=== PATIENT | female | born 1950 | race Caucasian/White ===

== ENCOUNTER 2016-11-19 21:40 | Emergency (ER) | payer MEDICARE, OTHER ==
[2016-11-19] MEDS ORDERED: LORATADINE 10 MG TABLET PO STA (22:37)
[2016-11-19] MEDS ORDERED: diphenhydrAMINE 25 MG CAPSULE PO STA (22:38)
[2016-11-19] MEDS ORDERED: predniSONE 20 MG TABLET PO STA (22:38)
--- NOTE | 2016-11-19 22:54 | ED Physician Documentation ---
History of Present Illness - Stated complaint Stated Complaint: BUG BITES - Chief complaint Chief Complaint: General - History obtained from History obtained from: Patient - Additonal information Additional information: Patient is a healthy woman without any significant medical history or recurrent allergies. She presents with a complaint of a red swollen and very pruritic right arm. She had the onset of symptoms yesterday after she noticed a few bumps on her arm consistent with an insect bite. From that time to the present the area surrounding the bites has become more red, swollen and intensely pruritic. She does not really have any other systemic complaints such as wheezing or shortness of breath her inability to swallow. She has had this happen before. There are no other dermatologic areas involved. Review of systems: For pertinent positive and negatives in the review of systems please see history of present illness. Otherwise all other systems have been reviewed and are negative. Dragon disclaimer: Parts of this medical record were created using voice recognition technology. Because of the inherent limitations of this system occasional same sounding word substitutions do occur and persist despite proofreading. Please read the document for context. Review of Systems Ten Systems: 10 systems reviewed and negative Constitutional: denies: Fever, Chills, Myalgias Eyes: denies: Loss of vision Nose: denies: Reviewed and negative Cardiac: denies: Chest pain / pressure, Palpitations Respiratory: denies: Dyspnea, Cough GI: denies: Abdominal Swelling Neurologic: denies: Generalized weakness PD PAST MEDICAL HISTORY - Past Surgical History Past Surgical History: Yes - Present Medications Home Medications: Ambulatory Orders Medication Instructions Recorded Confirmed Loratadine [Claritin] 10 mg PO DAILY PRN 12/02/13 11/19/16 Loratadine [Claritin] 10 mg PO DAILY #7 tablet 11/19/16 Prednisone 40 mg PO DAILY #8 tablet 11/19/16 Triamcinolone 0.1% Cream [Kenalog 1 gm TOP BID #30 tube 11/19/16 0.1% Cream] - Allergies Allergies/Adverse Reactions: Allergies Allergy/AdvReac Type Severity Reaction Status Date / Time No Known Drug Allergies Allergy Verified 12/02/13 22:02 - Social History Does the pt smoke?: No Smoking Status: Never smoker Does the pt drink ETOH?: No Does the pt have substance abuse?: No - Immunizations Immunizations are current?: Yes - POLST Patient has POLST: No PD ED PE NORMAL - General General: Alert and oriented X 3, No acute distress, Well developed/nourished - HEENT HEENT: Atraumatic, PERRL, EOMI - Neck Neck: Supple, no meningeal sign - Cardiac Cardiac: RRR, No murmur, No gallop, No rub - Respiratory Respiratory: No respiratory distress, Clear bilaterally - Abdomen Abdomen: Normal bowel sounds - Derm Derm: Other (Normal skin exam except the right upper arm where she has approximately 5 separate little hard pills with surrounding erythema and mild induration of the skin) Results - Vitals Vitals: Vital Signs - 24 hr 11/19/16 21:44 Temperature 36.5 C Heart Rate 87 Respiratory 16 Rate Blood Pressure 151/78 H O2 Saturation 100 Oxygen O2 Source Room air PD MEDICAL DECISION MAKING - ED course ED course: Well-appearing female who sounds like she had some type of insect bite sting her envenomation yesterday. Subsequently the area around the biceps become red , warm, swollen and intensely pruritic. Examination suggests insect bite with a local allergic reaction. Her symptoms and findings especially at this point are not consistent with cellulitis. The patient was given Benadryl here loratadine, and oral prednisone. She will go home on the same medications along with topical Kenalog. She is discharged home at this time in improved condition. Disposition: To home Clinical impression: 1. Insect bites right arm with local allergic reaction
[2016-11-19] MEDS ORDERED: predniSONE 20 MG TABLET ONE (22:57)
[2016-11-19] MEDS ORDERED: diphenhydrAMINE 25 MG CAPSULE PO ONE (22:57)
[2016-11-19] MEDS ORDERED: LORATADINE 10 MG TABLET ONE (22:58)
[2016-11-19 23:14] VITALS: BP 139/84
== END 2016-11-19 23:13 | disposition home or self-care (01) ==
LOC: ED 21:40
DX: S40.861A Insect bite (nonvenomous) of right upper arm, initial encounter (principal); W57.XXXA Bitten or stung by nonvenomous insect and other nonvenomous arthropods, initial encounter
CPT/HCPCS: 99283; A9270; J7512

== ENCOUNTER 2017-08-02 01:41 | Emergency (ER) | payer MEDICARE, OTHER ==
--- NOTE | 2017-08-02 02:29 | XRAY Preliminary Report ---
Exam: XR CHEST 2 VIEW X-RAY IMPRESSION: 1. No acute abnormality seen in the chest. [facility] SITE ID: [id number]
--- NOTE | 2017-08-02 02:29 | XRAY Report ---
EXAM: CHEST RADIOGRAPHY EXAM DATE: 08/02/2017 02:13 AM. CLINICAL HISTORY: Coughing, hx bronchitis. COMPARISON: None. TECHNIQUE: 2 views. FINDINGS: Lungs/Pleura: No alveolar consolidation or pleural effusion seen. No pneumothorax. Mediastinum: Heart and mediastinal contours are unremarkable. Other: None. IMPRESSION: 1. No acute abnormality seen in the chest. [facility] Referring Provider Line: [phone] SITE ID: [id number]
--- NOTE | 2017-08-02 02:34 | ED Physician Documentation ---
PD HPI DYSPNEA - Stated complaint Stated Complaint: COUGH - Chief complaint Chief Complaint: Resp - History obtained from History obtained from: Patient - History of Present Illness Timing - onset: How many days ago (4) Timing - onset during: Light activity, Exertion Timing - details: Gradual onset, Intermittant, Waxing and waning Pain level now: 2 Inciting event(s): Out of meds, Exposure (ie smoke) Improved by: Inhaler/neb, Rest. No: Other Worsened by: Exertion, Laying flat, Coughing Associated symptoms: Cough. No: Fever, Hemoptysis, Wheezing, Chest pain / discomfort, Palpitations, Diaphoresis, Bilateral edema, Unilateral edema, Anxiety, Other Similar symptoms before: No diagnosis - Additional information Additional information: c/o 4 days of cough, dry but then becoming productive. PD PAST MEDICAL HISTORY - Past Medical History Past Medical History: No - Past Surgical History Past Surgical History: Yes - Present Medications Home Medications: Ambulatory Orders Medication Instructions Recorded Confirmed Loratadine [Claritin] 10 mg PO DAILY PRN 12/02/13 11/19/16 Albuterol Sulfate [Proair Hfa 1 - 2 puffs INH Q4H PRN 08/02/17 Inhaler] Benzonatate [Tessalon] 100 mg PO TID PRN #25 capsule 08/02/17 Biotin 300 mcg PO DAILY 08/02/17 08/02/17 Cholecalciferol (Vitamin D3) 5,000 unit PO DAILY 08/02/17 08/02/17 [Vitamin D3] Cream Base No.226 [Hrt Essential 08/02/17 Cream] Dicyclomine [Bentyl] 20 mg PO QID PRN #20 capsule 08/02/17 Lysine HCl 600 mg PO DAILY 08/02/17 Ondansetron Odt [Zofran] 4 mg TL Q6H PRN #15 tablet 08/02/17 guaiFENesin/CODEINE [Robitussin AC] 5 - 10 ml PO Q6H PRN #100 udc 08/02/17 predniSONE [Prednisone] 40 mg PO DAILY #6 tablet 08/02/17 - Allergies Allergies/Adverse Reactions: Allergies Allergy/AdvReac Type Severity Reaction Status Date / Time iodine Allergy Rash Verified 08/02/17 06:35 - Social History Does the pt smoke?: No Smoking Status: Never smoker Does the pt drink ETOH?: No Does the pt have substance abuse?: No - Immunizations Immunizations are current?: Yes - POLST Patient has POLST: No PD ED PE NORMAL - Vitals Vital signs reviewed: Yes - General General: Alert and oriented X 3, No acute distress - HEENT HEENT: EOMI - Neck Neck: Supple, no meningeal sign, No bony TTP, No adenopathy, Thyroid normal - Cardiac Cardiac: RRR, No murmur - Respiratory Respiratory: No respiratory distress, Clear bilaterally - Abdomen Abdomen: Soft, Non tender Results - Vitals Vitals: Oxygen O2 Source Room air - Rads (name of study) chest xray Radiology: Prelim report reviewed, See rad report PD MEDICAL DECISION MAKING - ED course Complexity details: reviewed results, re-evaluated patient, considered differential, d/w patient ED course: w/u suggests against PE, [place], pneumonia. suspect bronchitis. Departure - Departure Disposition: 01 Home, Self Care Clinical Impression: Bronchitis, Sinusitis Condition: Good Instructions: ED Upper Resp Infec No Abx Tx, ED Sinusitis No Abx Follow-Up: Paras Nava ARNP [Primary Care Provider] - Within 1 week Prescriptions: guaiFENesin/CODEINE [Robitussin AC] 5 - 10 ml PO Q6H PRN #100 udc PRN Reason: Cough predniSONE [Prednisone] 40 mg PO DAILY #6 tablet Discharge Date/Time: 08/02/17 03:04
[2017-08-02] MEDS ORDERED: guaiFENesin/CODEINE 5 ML UDC PO STA (02:52)
[2017-08-02] MEDS ORDERED: predniSONE 20 MG TABLET PO STA (02:52)
[2017-08-02 03:04] VITALS: BP 116/67
== END 2017-08-02 03:04 | disposition home or self-care (01) ==
LOC: ED 01:41
DX: J40 Bronchitis, not specified as acute or chronic (principal); J32.9 Chronic sinusitis, unspecified
CPT/HCPCS: 71046; 99283

== ENCOUNTER 2017-08-02 06:09 | Outpatient (CLI) | payer MEDICARE, OTHER | END 2017-08-02 06:10 | disposition critical access hospital (66) | LOC: EMS 06:09 | PROVIDERS: ATTEND Surgery | DX: R10.9 Unspecified abdominal pain (principal) | CPT/HCPCS: A0425; A0427 ==

== ENCOUNTER 2017-08-02 06:28 | Emergency (ER) | payer MEDICARE, OTHER ==
[2017-08-02] MEDS ORDERED: MORPHINE 10 MG/ML VIAL IVP STA (06:45)
[2017-08-02] MEDS ORDERED: HYDROmorphone 1 MG/ML CARPUJECT IM STA (06:52)
--- NOTE | 2017-08-02 07:02 | ED Physician Documentation ---
PD HPI ABD PAIN - Stated complaint Stated Complaint: ABD PX - Chief complaint Chief Complaint: Abd Pain - History obtained from History obtained from: Patient - History of Present Illness Timing - onset: How many hours ago (2) Timing - duration: Hours (2) Timing - details: Abrupt onset, Still present, Waxing and waning Quality: Cramping, Aching, Pain. No: Sharp Location: RUQ, Epigastric Radiation: Upper back Improved by: No: Laying still, Position Worsened by: No: Breathing, Position, Palpation Associated symptoms: Nausea. No: Fever, Vomiting, Diarrhea, Dysuria Similar symptoms before: Has not had sx before Recently seen: Emergency Dept (has had cough for days worsening and seen in ED few hours ago for this, given Decadron and codeine cough med. Cough was less and when got home, developed severe cramping upper abd about an hour later. Has had undulating cramping pain upper abd since. Has not had prior similar ( somewhat like gallbladder pain but that has been removed).) Review of Systems Constitutional: denies: Fever, Chills Throat: denies: Sore throat Cardiac: denies: Chest pain / pressure Respiratory: reports: Cough. denies: Dyspnea, Wheezing GI: reports: Abdominal Pain, Nausea. 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 - Present Medications Home Medications: Ambulatory Orders Medication Instructions Recorded Confirmed Loratadine [Claritin] 10 mg PO DAILY PRN 12/02/13 11/19/16 Albuterol Sulfate [Proair Hfa 1 - 2 puffs INH Q4H PRN 08/02/17 Inhaler] Benzonatate [Tessalon] 100 mg PO TID PRN #25 capsule 08/02/17 Biotin 300 mcg PO DAILY 08/02/17 08/02/17 Cholecalciferol (Vitamin D3) 5,000 unit PO DAILY 08/02/17 08/02/17 [Vitamin D3] Cream Base No.226 [Hrt Essential 08/02/17 Cream] Dicyclomine [Bentyl] 20 mg PO QID PRN #20 capsule 08/02/17 Lysine HCl 600 mg PO DAILY 08/02/17 Ondansetron Odt [Zofran] 4 mg TL Q6H PRN #15 tablet 08/02/17 guaiFENesin/CODEINE [Robitussin AC] 5 - 10 ml PO Q6H PRN #100 udc 08/02/17 predniSONE [Prednisone] 40 mg PO DAILY #6 tablet 08/02/17 - Allergies Allergies/Adverse Reactions: Allergies Allergy/AdvReac Type Severity Reaction Status Date / Time iodine Allergy Rash Verified 08/02/17 06:35 - Social History Does the pt smoke?: No Smoking Status: Never smoker Does the pt drink ETOH?: No Does the pt have substance abuse?: No - Immunizations Immunizations are current?: Yes - POLST Patient has POLST: No PD ED PE NORMAL - Vitals Vital signs reviewed: Yes - General General: Alert and oriented X 3, Well developed/nourished, Other (appears in pain and holding upper abd. ) - HEENT HEENT: Pharynx benign - Neck Neck: Supple, no meningeal sign, No adenopathy - Cardiac Cardiac: RRR, No murmur - Respiratory Respiratory: Clear bilaterally - Abdomen Abdomen: Normal bowel sounds, Soft, Non distended, No organomegaly, Other ( tender epigastric and right upper abd. Decreased abd sounds. No distension. No percussion tenderness. ) - Female Female : Deferred - Rectal Rectal: Deferred - Back Back: No CVA TTP - Derm Derm: Normal color, Warm and dry - Extremities Extremities: No tenderness to palpate, Normal ROM s pain, No edema, No calf tenderness / cord - Neuro Neuro: Alert and oriented X 3, No motor deficit, Normal speech Results - Vitals Vitals: Vital Signs - 24 hr 08/02/17 08/02/17 08/02/17 06:29 08:24 12:59 Temperature 36.3 C L Heart Rate 76 65 58 L Respiratory 16 18 18 Rate Blood Pressure 128/74 118/67 120/85 H O2 Saturation 99 95 96 08/02/17 13:05 Temperature Heart Rate 64 Respiratory 17 Rate Blood Pressure 118/72 O2 Saturation 95 Oxygen O2 Source Room air - Labs Labs: Laboratory Tests 08/02/17 08/02/17 08/02/17 07:36 07:36 07:36 WBC 4.6 L RBC 4.32 Hgb 13.5 Hct 40.2 MCV 93.0 MCH 31.2 H MCHC 33.5 RDW 13.3 Plt Count 132 MPV 10.5 Neut # 4.1 Lymph # 0.3 L Ada # 0.2 Eos # 0.0 Baso # 0.0 Absolute Nucleated RBC 0.00 Nucleated RBC % 0.0 Sodium 135 Potassium 3.8 Chloride 102 Carbon Dioxide 23 Anion Gap 10.0 BUN 11 Creatinine 0.6 Estimated GFR (MDRD) 99 Glucose 132 H Calcium 8.8 Total Bilirubin 0.7 AST 456 H ALT 275 H Alkaline Phosphatase 111 Troponin I < 0.04 Total Protein 6.9 Albumin 4.3 Globulin 2.6 Albumin/Globulin Ratio 1.7 Lipase 22 Urine Color Urine Clarity Urine pH Ur Specific Grayson Urine Protein Urine Glucose (UA) Urine Ketones Urine Occult Blood Urine Nitrite Urine Bilirubin Urine Urobilinogen Ur Leukocyte Esterase Ur Microscopic Review Urine Culture Comments 08/02/17 07:56 WBC RBC Hgb Hct MCV MCH MCHC RDW Plt Count MPV Neut # Lymph # Ada # Eos # Baso # Absolute Nucleated RBC Nucleated RBC % Sodium Potassium Chloride Carbon Dioxide Anion Gap BUN Creatinine Estimated GFR (MDRD) Glucose Calcium Total Bilirubin AST ALT Alkaline Phosphatase Troponin I Total Protein Albumin Globulin Albumin/Globulin Ratio Lipase Urine Color YELLOW Urine Clarity CLEAR Urine pH 5.5 Ur Specific Grayson 1.025 Urine Protein NEGATIVE Urine Glucose (UA) NEGATIVE Urine Ketones NEGATIVE Urine Occult Blood NEGATIVE Urine Nitrite NEGATIVE Urine Bilirubin NEGATIVE Urine Urobilinogen 0.2 (NORMAL) Ur Leukocyte Esterase NEGATIVE Ur Microscopic Review NOT INDICATED Urine Culture Comments NOT INDICATED - Rads (name of study) abd CT Radiology: Prelim report reviewed (no acute process) PD MEDICAL DECISION MAKING - ED course Complexity details: reviewed results, re-evaluated patient (improved symptoms. Daughter concerned about symptoms returning as meds wore off, so patient kept in ED for another couple of hours, and still little to no pain returned (just slight aching pain now). ), considered differential (given timing of ED visit for cough and given some meds, presume side effect of the meds. Could be the codeine triggering bile duct spasm or intestinal. Less likely the Decadron I would think. Could be connected to the cough itself, but has not had vomiting nor diarrhea with the illness. Consider unrelated per se, but coincident, such as vascular aortic process or pancreatitis. ), d/w patient Departure - Departure Disposition: 01 Home, Self Care Clinical Impression: Upper abdominal pain Condition: Stable Record reviewed to determine appropriate education?: Yes Instructions: ED Abdominal Pain Unkn Cause Follow-Up: Paras Nava ARNP [Primary Care Provider] - Prescriptions: Benzonatate [Tessalon] 100 mg PO TID PRN #25 capsule PRN Reason: Cough Dicyclomine [Bentyl] 20 mg PO QID PRN #20 capsule PRN Reason: Spasms Ondansetron Odt [Zofran] 4 mg TL Q6H PRN #15 tablet PRN Reason: Nausea / Vomiting Comments: Drink lots of fluids. Get the prednisone previously directed for your cough. Add Tessalon if needed for cough. We will avoid codeine for now in case that was what triggered your intestinal spasm. Your CT scan and blood tests appear okay so it is presumably a spasming of the intestine or possibly the bile duct. He can use an antispasmodic dicyclomine for this. Add Tylenol if needed for pains. Ondansetron if needed for nausea. Recheck if the abdominal symptoms are not improved continually through the day today and into tomorrow. Recheck if her cough is not improved over the next several days. Discharge Date/Time: 08/02/17 13:10
[2017-08-02] MEDS ORDERED: ONDANSETRON 4 MG/2 ML VIAL IVP STA (07:28)
[2017-08-02] MEDS ORDERED: SODIUM CHLORIDE 0.9% 1,000 ML IV ONE (07:28)
[2017-08-02] MEDS ORDERED: HYDROmorphone 1 MG/ML CARPUJECT IVP STA (07:29)
[2017-08-02 07:45] LABS: BASOPHILS % (AUTO) 0.1 %; EOSINOPHILS % (AUTO) 0.1 %; HGB - HEMOGLOBIN 13.5 g/dL (12.0-16.0); LYMPHOCYTES # (AUTO) 0.3 10^3/uL (1.5-3.5); LYMPHOCYTES % (AUTO) 5.9 %; MEAN CORPUSCULAR HEMOGLOBIN 31.2 pg (27.0-31.0); MEAN CORPUSCULAR HGB CONC 33.5 g/dL (32.0-36.0); MEAN PLATELET VOLUME 10.5 fL (7.9-10.8); MONOCYTES # (AUTO) 0.2 10^3/uL (0.0-1.0); MONOCYTES % (AUTO) 4.3 %; NEUTROPHILS # (AUTO) 4.1 10^3/uL (1.5-6.6); NEUTROPHILS % (AUTO) 89.6 %; PLT - PLATELET COUNT 132 10^3/uL (130-450); RED BLOOD COUNT 4.32 10^6/uL (4.20-5.40); RED CELL DISTRIBUTION WIDTH 13.3 % (12.0-15.0); WHITE BLOOD COUNT 4.6 x10^3/uL (4.8-10.8)
[2017-08-02] MEDS ORDERED: IOPAMIDOL-300 100 ML VIAL ONE (07:50)
[2017-08-02 08:06] LABS: ALBUMIN 4.3 g/dL (3.2-5.5); ALBUMIN/GLOBULIN RATIO 1.7 (1.0-2.2); BILIRUBIN,TOTAL 0.7 mg/dL (0.2-1.0); CALCIUM 8.8 mg/dL (8.5-10.3); CREATININE 0.6 mg/dL (0.4-1.0); TOTAL PROTEIN 6.9 g/dL (6.7-8.2)
[2017-08-02 08:10] LABS: BILIRUBIN,URINE NEGATIVE (NEGATIVE); GLUCOSE, URINE (UA) NEGATIVE (NEGATIVE); KETONES,URINE (UA) NEGATIVE (NEGATIVE); LEUKOCYTE ESTERASE, URINE NEGATIVE (NEGATIVE); NITRITE,URINE NEGATIVE (NEGATIVE); OCCULT BLOOD,URINE NEGATIVE (NEGATIVE); PH,URINE 5.5 PH (5.0-7.5); PROTEIN,URINE NEGATIVE (NEGATIVE); UROBILINOGEN,URINE 0.2 (NORMAL) E.U./dL (NORMAL)
[2017-08-02 08:16] LABS: CLARITY,URINE CLEAR (CLEAR)
[2017-08-02] MEDS ORDERED: diphenhydrAMINE INJ 50 MG/ML VIAL IVP STA (08:34)
[2017-08-02] MEDS ORDERED: DEXAMETHASONE 10 MG/ML VIAL IVP STA (08:34)
[2017-08-02] MEDS ORDERED: IOPAMIDOL-300 100 ML VIAL IVP ONE (09:49)
--- NOTE | 2017-08-02 10:07 | CT Report ---
EXAM: CT ABDOMEN AND PELVIS EXAM DATE: 08/02/2017 09:33 AM. CLINICAL HISTORY: Upper abd pain abruptly tonight. COMPARISONS: 10/30/2011. TECHNIQUE: Routine helical CT imaging was performed through the abdomen and pelvis. IV contrast: 100M L ISOVUE 300. Enteric contrast: No. Reconstructions: Coronal and sagittal. In accordance with CT protocol optimization, one or more of the following dose reduction techniques w ere utilized for this exam: automated exposure control, adjustment of mA and/or KV based on patient s ize, or use of iterative reconstructive technique. FINDINGS: Lung Bases: Unremarkable. Liver: Multiple simple appearance hepatic cysts, the largest one in the segment 2, 4.2 cm again noted , no significant interval changes. There is new diffuse mild low density without masses. Gallbladder/Bile Ducts: Status post cholecystectomy with slightly prominent intra-and extra hepatic b ile ducts is again noted, without significant interval change. Spleen: Normal. Pancreas: Normal. Adrenal Glands: Normal. Kidneys: Normal. No masses or hydronephrosis. Peritoneal Cavity/Bowel: The surgical clip or calcified nodule in the lateral left mid abdomen 3 x 6 mm unchanged. No free fluid, free air or adenopathy. No masses or acute inflammatory process. The cassia endix is not visualized and no inflammatory changes, fluid collection or mass in the right lower abdo men seen. Pelvic Organs: The bladder and visualized pelvic organs are within normal limits. Vasculature: No aneurysms or other significant abnormality. Bones: No significant abnormality. Other: There is again a broad-based fat-containing umbilical hernia, 0.9 x 1.4 cm, minimal interval c hanges. IMPRESSION: 1. Likely new mild hepatic steatosis without significant interval changes of the multiple hepatic cys ts and status post cholecystectomy 2. Otherwise, no significant interval changes in abdomen and pelvis CT; no new findings for the patie nt's symptoms. [facility] Referring Provider Line: [phone] SITE ID: [id number]
[2017-08-02] MEDS ORDERED: KETOROLAC 60 MG/2 ML VIAL IVP STA (10:45)
[2017-08-02] MEDS ORDERED: DICYCLOMINE 10 MG CAPSULE PO STA (10:46)
[2017-08-02 13:06] VITALS: BP 118/72
== END 2017-08-02 13:10 | disposition home or self-care (01) ==
LOC: EDUNIT# → ED 06:28
DX: R10.11 Right upper quadrant pain (principal); R10.13 Epigastric pain; J40 Bronchitis, not specified as acute or chronic; J32.9 Chronic sinusitis, unspecified; R53.83 Other fatigue; M79.1 Myalgia
CPT/HCPCS: 36415; 71046; 74177; 80053; 81003; 83690; 84484; 85025; 93005; 96361; 96372; 96374; 96375; 99283; 99284; A9270; J1170; J1200; J7512; Q9967; 81001; 87086

== ENCOUNTER 2017-09-14 08:23 | Outpatient (CLI) | payer MEDICARE, OTHER ==
--- NOTE | 2017-09-19 16:45 | DEXA Report ---
DEXA SCAN: 09/14/2017 CLINICAL INDICATION: Postmenopausal. TECHNIQUE: Dual energy x-ray absorptiometry (DXA) was performed on a [employer] system. Regions measured are the AP spine, femoral neck, and, if needed, forearm. COMPARISON: None. In accordance with the International Society for Clinical Densitometry (ISCD) guidelines, data from previous exams may be reanalyzed using current recommendations and techniques. This is done to allow a more accurate basis for comparison with the current study. FINDINGS The data for the lumbar spine is as follows: REGION BMD (g/cm/cm) T-SCORE Z-SCORE L1 0.959 -1.4 0.4 L2 0.995 -1.7 0.1 L3 1.092 -0.9 0.9 L4 1.061 -1.2 0.7 L1-L4 1.033 -1.2 0.6 NOTE: All evaluable vertebrae are used for classification. The data for the hip is as follows: REGION BMD (g/cm/cm) T-SCORE Z-SCORE Neck 0.933 -0.8 1.0 TOTAL 0.980 -0.2 1.4 NOTE: The femoral neck or total proximal femur, whichever is lowest, is used for classification. IMPRESSION: WHO CLASSIFICATION BASED ON THE INTERNATIONAL REFERENCE STANDARD IS OSTEOPENIA. FRACTURE RISK IS INCREASED. RECOMMENDATION: Patients with diagnosis of osteoporosis or osteopenia should have regular bone mineral density assessment. For those eligible for Medicare, routine testing is allowed once every 2 years. Testing frequency can be increased for patients who have rapidly progressing disease or for those who are receiving medical therapy to restore bone mass. COMMENT World Health Organization (WHO) definitions for osteoporosis and osteopenia: NORMAL BMD: T-score at 1.0 or higher, fracture risk is low. OSTEOPENIA BMD: T-score between 1.0 and -2.5, fracture risk is increased. OSTEOPOROSIS BMD: T-score at 2.5 or lower, fracture risk high. National Osteoporosis Foundation recommends: 1. Obtain adequate dietary calcium (at least 1200 mg per day) and vitamin D (400 -800 international units per day). 2. Participate, as appropriate, in regular weightbearing and muscle- strengthening exercise. 3. Avoid tobacco use and reduce alcohol and caffeine intake. 4. For more detailed information see the website at www.NOF.org. TD: 09/14/2017 12:52 MTDNubia
== END 2017-09-14 08:24 | disposition home or self-care (01) ==
LOC: DI 08:23
PROVIDERS: ATTEND Internal Medicine
DX: Z13.820 Encounter for screening for osteoporosis (principal); N95.8 Other specified menopausal and perimenopausal disorders; M85.80 Other specified disorders of bone density and structure, unspecified site
CPT/HCPCS: 77080

== ENCOUNTER 2018-04-15 15:20 | Outpatient (CLI) | payer MEDICARE, OTHER ==
--- NOTE | 2018-04-16 00:25 | XRAY Report ---
Reason: Right side rib pain Procedure Date: 04/15/2018 Accession Number: [id number] / [id number] Procedure: XR - Ribs w/PA Chest RT CPT Code: FULL RESULT: EXAM: RIGHT RIB RADIOGRAPHY EXAM DATE: 04/15/2018 03:44 PM. CLINICAL HISTORY: Right side rib pain. COMPARISON: CHEST 2 VIEW 08/02/2017 2:13 AM. TECHNIQUE: 1 view of the chest and 2 views of the ribs. FINDINGS: Bones: Old healed right posterior lateral rib fracture, unchanged. No evidence for acute fracture. Mild dextroscoliosis at the thoracic lumbar spine. Lungs: No focal opacities. No pneumothorax. No pleural effusions. Mediastinum: Heart and mediastinal contours are unremarkable. Surgical clips in the right upper quadrant. IMPRESSION: No evidence for acute rib fracture. See above. [facility]
== END 2018-04-15 15:21 | disposition home or self-care (01) ==
LOC: DI 15:20
PROVIDERS: ATTEND Nurse Practitioner Family
DX: R07.81 Pleurodynia (principal)

== ENCOUNTER 2019-03-31 13:16 | Outpatient (CLI) | payer MEDICARE, OTHER ==
--- NOTE | 2019-04-01 21:33 | XRAY Report ---
Reason: SWELLING OF FINGER JOINT Procedure Date: 03/31/2019 Accession Number: [id number] / [id number] Procedure: XR - Hand 3 View LT CPT Code: Final Report FULL RESULT: EXAM: LEFT HAND RADIOGRAPHY EXAM DATE: 03/31/2019 01:26 PM. CLINICAL HISTORY: Swelling of finger joint. Distal second digit pain. COMPARISON: None. TECHNIQUE: 3 views. FINDINGS: Bones: Normal. No fractures or bone lesions. Joints: Severe osteoarthritic changes at the index and ring finger DIP joints. Mild degenerative changes at the DIP joint of the fifth finger. No subluxations. Soft Tissues: Normal. No soft tissue swelling. IMPRESSION: Severe osteoarthritic changes at the index and ring finger DIP joints. [facility]
== END 2019-03-31 13:17 | disposition home or self-care (01) ==
LOC: DI 13:16
PROVIDERS: ATTEND Nurse Practitioner Family
DX: M19.042 Primary osteoarthritis, left hand (principal)

== ENCOUNTER 2020-01-27 08:00 | Outpatient (CLI) | payer MEDICARE, OTHER | END 2020-01-27 23:59 | disposition home or self-care (01) | LOC: LAB.S 08:00 | PROVIDERS: ATTEND Physician Assistant | DX: J02.9 Acute pharyngitis, unspecified (principal); Z20.828 Contact with and (suspected) exposure to other viral communicable diseases | CPT/HCPCS: 87070; U0004 ==

== ENCOUNTER 2020-02-03 08:00 | Outpatient (CLI) | payer MEDICARE, OTHER ==
[2020-02-03 17:38] LABS: BASOPHILS % (AUTO) 0.4 %; EOSINOPHILS % (AUTO) 0.1 %; HGB - HEMOGLOBIN 12.7 g/dL (12.0-16.0); LYMPHOCYTES % (AUTO) 11.5 %; MEAN CORPUSCULAR HEMOGLOBIN 32.3 pg (27.0-31.0); MEAN CORPUSCULAR HGB CONC 32.3 g/dL (32.0-36.0); MEAN PLATELET VOLUME 11.4 fL (7.9-10.8); MONOCYTES # (AUTO) 0.2 10^3/uL (0.0-1.0); MONOCYTES % (AUTO) 2.2 %; PLT - PLATELET COUNT 211 10^3/uL (130-450); RED BLOOD COUNT 3.93 10^6/uL (4.20-5.40); RED CELL DISTRIBUTION WIDTH 12.8 % (12.0-15.0); WHITE BLOOD COUNT 8.4 x10^3/uL (4.8-10.8)
[2020-02-03 18:25] LABS: ALBUMIN 4.1 g/dL (3.2-5.5); ALBUMIN/GLOBULIN RATIO 1.4 (1.0-2.2); ALKALINE PHOSPHATASE 44 IU/L (42-121); ALT ALANINE AMINOTRANSFERASE 16 IU/L (10-60); AST ASPARTATE AMINOTRANSFERASE 20 IU/L (10-42); BILIRUBIN,TOTAL 0.7 mg/dL (0.2-1.0); BUN - BLOOD UREA NITROGEN 17 mg/dL (6-20); CALCIUM 9.3 mg/dL (8.5-10.3); CARBON DIOXIDE - CO2 25 mmol/L (21-32); CHLORIDE 103 mmol/L (101-111); CREATININE 0.7 mg/dL (0.4-1.0); GLUCOSE 168 mg/dL (70-100); SODIUM 138 mmol/L (135-145)
[2020-02-03 19:03] LABS: CRP - C-REACTIVE PROTEIN < 1.0 mg/dL (0-1.0)
== END 2020-02-03 23:59 | disposition home or self-care (01) ==
LOC: LAB.S 08:00
PROVIDERS: ATTEND Emergency Medicine
DX: K12.1 Other forms of stomatitis (principal)
CPT/HCPCS: 36415; 80053; 85025; 85651; 86140

== ENCOUNTER 2020-06-16 20:33 | Emergency (ER) | payer MEDICARE, OTHER ==
[2020-06-16] MEDS ORDERED: ONDANSETRON ODT 4 MG TABLET TL STA (21:34)
[2020-06-16] MEDS ORDERED: LOPERAMIDE 2 MG CAPSULE PO STA (21:34)
[2020-06-16] MEDS ORDERED: AMPICILLIN/SULBACTAM 3 GM in SODIUM CHLORIDE 0.9% MINIBAG 100 ML IV STA (21:34)
--- NOTE | 2020-06-16 21:36 | ED Physician Documentation ---
PD HPI UPPER EXT INJURY - Stated complaint Stated Complaint: CAT BITE - Chief complaint Chief Complaint: Laceration - History obtained from History obtained from: Patient - Additonal information Additional information: Bitten by her cat to the left hand about 4 PM today because she was trying to get a bird out of its mouth. She is up-to-date on tetanus. Already has some redness around the wound. No fever. 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 - Present Medications Home Medications: Ambulatory Orders Medication Instructions Recorded Confirmed Loratadine [Claritin] 10 mg PO DAILY PRN 12/02/13 11/19/16 Albuterol Sulfate [Proair Hfa 1 - 2 puffs INH Q4H PRN 08/02/17 Inhaler] Benzonatate [Tessalon] 100 mg PO TID PRN #25 capsule 08/02/17 Biotin 300 mcg PO DAILY 08/02/17 08/02/17 Cholecalciferol (Vitamin D3) 5,000 unit PO DAILY 08/02/17 08/02/17 [Vitamin D3] Cream Base No.226 [Hrt Essential 08/02/17 Cream] Dicyclomine [Bentyl] 20 mg PO QID PRN #20 capsule 08/02/17 Lysine HCl 600 mg PO DAILY 08/02/17 Ondansetron Odt [Zofran] 4 mg TL Q6H PRN #15 tablet 08/02/17 guaiFENesin/CODEINE [Robitussin AC] 5 - 10 ml PO Q6H PRN #100 udc 08/02/17 predniSONE [Prednisone] 40 mg PO DAILY #6 tablet 08/02/17 Amox/Clav 875/125 [Augmentin] 1 each PO Q12H #14 tab 06/16/20 Ondansetron Odt [Zofran] 4 mg TL Q6H PRN #10 tab 06/16/20 - Allergies Allergies/Adverse Reactions: Allergies Allergy/AdvReac Type Severity Reaction Status Date / Time codeine Allergy Anaphylaxis Verified 06/16/20 20:42 iodine Allergy Rash Verified 08/02/17 06:35 Sulfa (Sulfonamide AdvReac Nausea Verified 06/16/20 20:42 Antibiotics) - Social History Does the pt smoke?: No Smoking Status: Never smoker Does the pt drink ETOH?: No Does the pt have substance abuse?: No - Immunizations Immunizations are current?: Yes - POLST Patient has POLST: No PD ED PE NORMAL - Vitals Vital signs reviewed: Yes - General General: Alert and oriented X 3 - Extremities Extremities: Other (A puncture wound to the first dorsal webspace of the left hand with some mild surrounding cellulitis.) - Neuro Neuro: Alert and oriented X 3, Normal speech Results - Vitals Vitals: Vital Signs - 24 hr 06/16/20 20:42 Temperature 36.5 C Heart Rate 72 Respiratory 16 Rate Blood Pressure 143/65 H O2 Saturation 100 Oxygen O2 Source Room air PD MEDICAL DECISION MAKING - ED course ED course: She says she was gets nauseous and diarrhea with antibiotics and therefore is given at her request a prophylactic dose of Imodium and Zofran along with first dose of IV Unasyn given the early signs of infection. Departure - Departure Disposition: 01 Home, Self Care Clinical Impression: Cat bite of hand Qualifiers: Encounter type: initial encounter Laterality: left Qualified Code(s): S61.452A - Open bite of left hand, initial encounter; W55.01XA - Bitten by cat, initial encounter Condition: Good Record reviewed to determine appropriate education?: Yes Instructions: ED Bite Cat Prescriptions: Amox/Clav 875/125 [Augmentin] 1 each PO Q12H #14 tab Ondansetron Odt [Zofran] 4 mg TL Q6H PRN #10 tab PRN Reason: Nausea / Vomiting Comments: As discussed, you do have some early signs of infection to the cat bite. Return if that worsens or if you develop a fever. You can take an [id number] Imodium as needed for diarrhea and the prescription nausea medicine if that is a problem as well.
[2020-06-16] MEDS ORDERED: AMOX/CLAV 875 MG/125 MG TABLET PO STA (22:20)
[2020-06-16] MEDS ORDERED: ONDANSETRON ODT 4 MG Prepack 2 TL PRN (22:27)
[2020-06-16 22:41] VITALS: BP 140/79
== END 2020-06-16 22:41 | disposition home or self-care (01) ==
LOC: ED 20:33
DX: S61.432A Puncture wound without foreign body of left hand, initial encounter (principal); L03.114 Cellulitis of left upper limb; W55.01XA Bitten by cat, initial encounter; Y93.K9 Activity, other involving animal care
CPT/HCPCS: 96365; 99283; 99284; A9270; Q0162

== ENCOUNTER 2021-02-23 12:21 | Emergency (ER) | payer MEDICARE, OTHER ==
[2021-02-23 12:42] VITALS: BP 131/66
[2021-02-23] MEDS ORDERED: ACETAMINOPHEN 325 MG TABLET PO STA (13:01)
--- NOTE | 2021-02-23 13:03 | ED Physician Documentation ---
PD HPI MAJOR TRAUMA - Stated complaint Stated Complaint: GLF - Chief complaint Chief Complaint: Trauma Ext - History obtained from History obtained from: Patient - Additional information Additional information: 71-year-old woman who is up-to-date on tetanus tripped over her dog in the kitchen this morning landing on the left knee and elbow. She was holding a jar of raspberry jam which shattered and has a cut on the forehead from that as well. No loss of consciousness or headache. 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 - Present Medications Home Medications: Ambulatory Orders Medication Instructions Recorded Confirmed Loratadine [Claritin] 10 mg PO DAILY PRN 12/02/13 11/19/16 Albuterol Sulfate [Proair Hfa 1 - 2 puffs INH Q4H PRN 08/02/17 Inhaler] Benzonatate [Tessalon] 100 mg PO TID PRN #25 capsule 08/02/17 Biotin 300 mcg PO DAILY 08/02/17 08/02/17 Cholecalciferol (Vitamin D3) 5,000 unit PO DAILY 08/02/17 08/02/17 [Vitamin D3] Cream Base No.226 [Hrt Essential 08/02/17 Cream] Dicyclomine [Bentyl] 20 mg PO QID PRN #20 capsule 08/02/17 Ondansetron Odt [Zofran] 4 mg TL Q6H PRN #15 tablet 08/02/17 guaiFENesin/CODEINE [Robitussin AC] 5 - 10 ml PO Q6H PRN #100 udc 08/02/17 lysine HCL [Lysine HCl] 600 mg PO DAILY 08/02/17 predniSONE [Prednisone] 40 mg PO DAILY #6 tablet 08/02/17 Amox/Clav 875/125 [Augmentin] 1 each PO Q12H #14 tab 06/16/20 Ondansetron Odt [Zofran] 4 mg TL Q6H PRN #10 tab 06/16/20 - Allergies Allergies/Adverse Reactions: Allergies Allergy/AdvReac Type Severity Reaction Status Date / Time codeine Allergy Anaphylaxis Verified 02/23/21 12:42 iodine Allergy Rash Verified 02/23/21 12:42 Sulfa (Sulfonamide AdvReac Nausea Verified 02/23/21 12:42 Antibiotics) - Social History Does the pt smoke?: No Smoking Status: Never smoker Does the pt drink ETOH?: No Does the pt have substance abuse?: No - Immunizations Immunizations are current?: Yes - POLST Patient has POLST: No PD ED PE NORMAL - Vitals Vital signs reviewed: Yes - General General: Alert and oriented X 3, No acute distress - HEENT HEENT: PERRL, EOMI, Other (She has 2 linear shallow lacerations to the left side of the forehead) - Neck Neck: Supple, no meningeal sign, No bony TTP - Extremities Extremities: Other (There is a skin flap laceration over the olecranon with mild tenderness of the olecranon on the left. Full range of motion. Similar skin flap laceration over the left patella with mild tenderness there as well but full range of motion. No hip tenderness.) Results - Vitals Vitals: Vital Signs - 24 hr 02/23/21 12:29 Temperature 36.4 C L Heart Rate 69 Respiratory 17 Rate Blood Pressure 131/66 H O2 Saturation 98 Oxygen O2 Source Room air - Rads (name of study) X-rays of the left elbow and left knee are negative except for evidence of soft tissue injury described in the HPI Radiology: EMP read contemporaneously Procedures - Laceration (location) forehead Length in cm: 1 Wound type: Linear Wound preparation: Irrigated copiously NS Skin layer closure: Dermabond Other: Tetanus UTD L elbow Length in cm: 2 Wound type: Flap, Superficial Wound preparation: Irrigated copiously NS Skin layer closure: Dermabond, Steri strips Other: Tetanus UTD L knee Length in cm: 2 Wound type: Flap, Superficial Wound preparation: Irrigated copiously NS Skin layer closure: Dermabond, Steri strips Other: Tetanus UTD Departure - Departure Disposition: 01 Home, Self Care Clinical Impression: Fall from ground level, Other contact with dog, initial encounter Laceration of left knee Qualifiers: Encounter type: initial encounter Qualified Code(s): S81.012A - Laceration without foreign body, left knee, initial encounter Contusion of left knee Qualifiers: Encounter type: initial encounter Qualified Code(s): S80.02XA - Contusion of left knee, initial encounter Laceration of left elbow Qualifiers: Encounter type: initial encounter Qualified Code(s): S51.012A - Laceration without foreign body of left elbow, initial encounter Left elbow contusion Qualifiers: Encounter type: initial encounter Qualified Code(s): S50.02XA - Contusion of left elbow, initial encounter Forehead laceration Qualifiers: Encounter type: initial encounter Qualified Code(s): S01.81XA - Laceration without foreign body of other part of head, initial encounter Condition: Good Record reviewed to determine appropriate education?: Yes Instructions: ED Contusion Soft Tissue, ED Laceration Facial Skin Glue, ED Laceration Ext Skin Glue Comments: Ice the areas as needed, 5 minutes on 20 minutes off. Otherwise just soap and water to the wounds. Return for new or worsening symptoms. Follow-up with your doctor in a week if not improved.
--- NOTE | 2021-02-23 13:44 | XRAY Report ---
PROCEDURE: Elbow 3 View LT INDICATIONS: elbow inj TECHNIQUE: 3 views of the elbow were acquired. COMPARISON: None FINDINGS: Bones: No fractures or dislocations. No suspicious bony lesions. Soft tissues: No elbow joint effusion. Mild soft tissue swelling/irregularity of the skin adjacent t o the posterior elbow with focus of subcutaneous gas. IMPRESSION: No acute osseous abnormality. Soft tissue abnormality of the posterior elbow with small amount of subcutaneous gas. Recommend corre lation for soft tissue injury. Reviewed by: Jeison Pierce DO on 02/23/2021 12:43 PM GRANT Approved by: Jeison Pierce DO on 02/23/2021 12:43 PM GRANT Station ID: [id number]
--- NOTE | 2021-02-23 13:45 | XRAY Report ---
PROCEDURE: Knee 4 View LT INDICATIONS: knee inj TECHNIQUE: 3 views of the left knee(s) were acquired. COMPARISON: None. FINDINGS: Bones: No fractures or dislocations. No suspicious bony lesions. Soft tissues: No joint effusion. No suspicious soft tissue calcifications. IMPRESSION: No acute osseous abnormality. Reviewed by: Jeison Pierce DO on 02/23/2021 12:44 PM GRANT Approved by: Jeison Pierce DO on 02/23/2021 12:44 PM GRANT Station ID: [id number]
== END 2021-02-23 13:57 | disposition home or self-care (01) ==
LOC: ED 12:21
DX: S51.012A Laceration without foreign body of left elbow, initial encounter (principal); S81.012A Laceration without foreign body, left knee, initial encounter; S01.81XA Laceration without foreign body of other part of head, initial encounter; W18.31XA Fall on same level due to stepping on an object, initial encounter; Y92.000 Kitchen of unspecified non-institutional (private) residence as the place of occurrence of the external cause
CPT/HCPCS: 12002; 12011; 73080; 73564; 99282; 99284; A9270

== ENCOUNTER 2021-05-18 08:00 | Outpatient (CLI) | payer MEDICARE, OTHER | END 2021-05-18 23:59 | LOC: LAB.S 08:00 | PROVIDERS: ATTEND Emergency Medicine | DX: J34.89 Other specified disorders of nose and nasal sinuses (principal); R05.1 Acute cough; Z20.822 Contact with and (suspected) exposure to COVID-19 ==

== ENCOUNTER 2021-09-19 08:00 | Outpatient (CLI) | payer MEDICARE, OTHER ==
--- NOTE | 2021-09-19 10:02 | XRAY Report ---
PROCEDURE: Ribs w/PA Chest RT INDICATIONS: RIGHT RIB PAIN TECHNIQUE: 3 views of the right ribs were acquired, along with a single view chest. COMPARISON: April 15, 2018. FINDINGS: SUPPORT DEVICES: None. LUNGS/PLEURA: No focal consolidation, pleural effusion or space-occupying pneumothorax. MEDIASTINUM: The cardiomediastinal silhouette is within normal limits. BONES/SOFT TISSUES: No acute, displaced fracture. Redemonstrated fracture deformity of the right four th rib. No chest wall subcutaneous emphysema. Right humeral head osteophytosis. IMPRESSION: 1.No acute abnormality. Reviewed by: Jose Antonio Milligan MD on 09/19/2021 10:01 AM PDT Approved by: Jose Antonio Milligan MD on 09/19/2021 10:01 AM PDT Station ID: [id number]
== END 2021-09-19 23:59 | disposition home or self-care (01) ==
LOC: DI.S 08:00
PROVIDERS: ATTEND Emergency Medicine
DX: R07.81 Pleurodynia (principal)

== ENCOUNTER 2022-03-04 17:43 | Outpatient (CLI) | payer MEDICARE, OTHER ==
[~2022-03-04 17:43] MED LIST: DIATRIZOATE MEGLU/DIATRIZO SOD 30 ML BOTTLE PO ONE; iohexoL-300 100 ML VIAL ONE
[2022-03-04] MEDS ORDERED: iohexoL-300 100 ML VIAL ONE (17:49)
[2022-03-04] MEDS ORDERED: DIATRIZOATE MEGLU/DIATRIZO SOD 30 ML BOTTLE PO ONE ×2 (17:49→20:24)
[2022-03-04] MEDS ORDERED: iohexoL-300 100 ML VIAL IVP ONE (20:21)
--- NOTE | 2022-03-05 11:47 | CT Report ---
PROCEDURE: ABDOMEN/PELVIS W INDICATIONS: ABD PAIN CONTRAST: Omni 300 100ml TECHNIQUE: After the administration of IV and oral contrast, 5 mm thick sections acquired from the diaphragms to the symphysis. 5 mm thick coronal and sagittal reformats were acquired. For radiation dose reducti on, the following was used: automated exposure control, adjustment of mA and/or kV according to xiomara ent size. COMPARISON: 08/02/2017 FINDINGS: Image quality: Excellent. ABDOMEN: Lung bases: Intact bilateral breast implants. Scarring and atelectatic changes present at both lung b ases. No pleural effusions. The heart size is normal. No hiatal hernia.. Solid organs: Several thin-walled multilocular cysts are present in the left lobe of the liver. The r ight lobe of the liver is elongated measuring up to 20.9 cm in length. Moderate diffuse intrahepatic biliary dilatation. Common hepatic duct measures 1.0 cm. Common bile duct measures about 9 mm maximal ly and tapers normally to the ampulla. The gallbladder surgically absent. No biliary stones are seen. The pancreas is normal. The spleen is normal size. There is a splenule in the inferior hilum. No adr enal masses. Kidneys are normal size and symmetric in enhancement. No hydronephrosis or nephrolithias is. Ureters are of normal caliber without calcification. Peritoneum and bowel: The stomach is filled with ingested material. Normal wall thickness. Small isi l loops demonstrate normal wall thickness. There are a few fluid filled pelvic small bowel loops demo nstrating slightly prominent diameter, with a transition to decompressed small bowel loops in the pos terior pelvis. There is increased quantity of solid stool present throughout the colon. The appendix is not seen. No pericolonic inflammation. No free fluid or air. Nodes and vessels: No retroperitoneal or mesenteric adenopathy by size criteria. Aorta and inferior vena cava are normal in size. Miscellaneous: Tiny wide necked umbilical hernia. PELVIS: Genitourinary: Bladder wall thickness is normal. The uterus is surgically absent. No adnexal masses . Miscellaneous: No inguinal hernias or adenopathy. Bones: No suspicious bony lesions. No vertebral body compression fractures. IMPRESSION: 1. Mildly prominent fluid filled pelvic small bowel loops with apparent transition point in the poste rior pelvis. This may indicate ileus or partial small bowel obstruction. No significant bowel dilatat ion to indicate complete bowel obstruction. 2. Surgically absent gallbladder with chronic intrahepatic biliary dilatation, stable degree compared to 08/02/2017. 3. No significant change to tiny White necked umbilical hernia. Reviewed by: Hortencia Galloway MD on 03/05/2022 10:46 AM GRANT Approved by: Hortencia Galloway MD on 03/05/2022 10:46 AM GRANT Station ID: [id number]
== END 2022-03-04 17:44 | disposition home or self-care (01) ==
LOC: DI 17:43
PROVIDERS: ATTEND Registered Nurse
DX: R93.5 Abnormal findings on diagnostic imaging of other abdominal regions, including retroperitoneum (principal); K42.9 Umbilical hernia without obstruction or gangrene; Z90.49 Acquired absence of other specified parts of digestive tract
CPT/HCPCS: 74177; Q9963; Q9967

== ENCOUNTER 2022-10-30 07:00 | Outpatient (CLI) | payer MEDICARE, OTHER ==
--- NOTE | 2022-10-30 22:29 | XRAY Report ---
PROCEDURE: Ankle 3 View RT INDICATIONS: RIGHT ANKLE PAIN TECHNIQUE: 3 views of the ankle were acquired. COMPARISON: None. FINDINGS: Bones: No acute fractures or dislocations. Ankle mortise is normally aligned. No suspicious bony l esions. Soft tissues: Mild soft tissue edema surrounding the ankle. IMPRESSION: No acute osseous abnormality. If there is clinical concern or persistent symptoms, additional imaging such as repeat radiographs or advanced imaging (e.g. CT, MRI) may be helpful for further evaluation. Reviewed by: Faisal Cooney MD on 10/30/2022 10:28 PM PDT Approved by: Faisal Cooney MD on 10/30/2022 10:28 PM PDT Station ID: [id number]
== END 2022-10-30 23:59 | disposition home or self-care (01) ==
LOC: DI.S 07:00
PROVIDERS: ATTEND Physician Assistant
DX: M25.571 Pain in right ankle and joints of right foot (principal)